=== PATIENT | female | born 1950 | race Two or more races ===

== ENCOUNTER 2017-08-21 06:36 | Outpatient (CLI) | payer OTHER | END 2017-08-21 06:41 | disposition home or self-care (01) | LOC: NUCLEAR 06:36 | DX: I50.42 Chronic combined systolic (congestive) and diastolic (congestive) heart failure (principal); I27.20 Pulmonary hypertension, unspecified; I34.0 Nonrheumatic mitral (valve) insufficiency ==

== ENCOUNTER → 2018-07-28 | Outpatient (CLI) | payer OTHER ==
[~2018-07-28] VITALS: Ht 157.5 cm; Wt 87.5 kg
== END | disposition home or self-care (01) ==
LOC: OFIC 805 07-22 11:00
DX: K06.8 Other specified disorders of gingiva and edentulous alveolar ridge (principal); R07.0 Pain in throat; J30.89 Other allergic rhinitis; R49.0 Dysphonia; D35.1 Benign neoplasm of parathyroid gland

== ENCOUNTER 2018-08-07 09:20 | Outpatient (CLI) | payer OTHER | END 2018-08-07 09:23 | disposition home or self-care (01) | LOC: SONOGRAMA 09:20 | DX: E04.1 Nontoxic single thyroid nodule (principal) ==

== ENCOUNTER 2018-08-15 07:49 | Outpatient (CLI) | payer OTHER ==
[~2018-08-15] VITALS: Ht 152.4 cm; Wt 87.5 kg
== END 2018-08-15 08:39 | disposition home or self-care (01) ==
LOC: OFIC 805 07:49
DX: J30.89 Other allergic rhinitis (principal); R07.0 Pain in throat

== ENCOUNTER 2018-09-25 12:29 | Outpatient (CLI) | payer OTHER | END 2018-09-25 12:45 | disposition home or self-care (01) | LOC: OFIC 805 12:29 | DX: J30.89 Other allergic rhinitis (principal); R49.0 Dysphonia; R07.0 Pain in throat; E04.1 Nontoxic single thyroid nodule ==

== ENCOUNTER 2018-11-06 13:11 | Outpatient (CLI) | payer OTHER ==
[~2018-11-06] VITALS: Ht 152.4 cm; Wt 87.5 kg
== END 2018-11-06 13:20 | disposition home or self-care (01) ==
LOC: OFIC 805 13:11
DX: J32.8 Other chronic sinusitis (principal); J40 Bronchitis, not specified as acute or chronic; R05 Cough